=== PATIENT | female | born 1965 | race Hispanic/Latino ===

== ENCOUNTER → 2024-07-16 | Day surgery (SDC) | payer OTHER ==
[~2024-07-16] MED LIST: LACTATED RINGER'S 1,000 ML ONE; LIDOCAINE HCL 2% LOCAL INJ 5 ML SDV VIAL INJ ONE; METFORMIN HCL500 MG PO; OMEGA 3 1,0001 EACH PO; PROPOFOL IV EMULSION 10 MG/ML 20 ML VIAL ONE; PROPOFOL IV EMULSION 50 ML IV ONE; SIMVASTATIN20 MG PO
[2024-07-16 12:10] VITALS: BP 127/74; PULSE 79; RESP 17; O2SAT 98
== END | disposition home or self-care (01) ==
LOC: OR 07:48
PROVIDERS: ATTEND Internal Medicine Gastroenterology
DX: Z12.11 Encounter for screening for malignant neoplasm of colon (principal); D12.4 Benign neoplasm of descending colon; D12.8 Benign neoplasm of rectum; K57.30 Diverticulosis of large intestine without perforation or abscess without bleeding; K64.8 Other hemorrhoids; E11.9 Type 2 diabetes mellitus without complications; E78.5 Hyperlipidemia, unspecified; R06.02 Shortness of breath; F41.9 Anxiety disorder, unspecified; Z79.84 Long term (current) use of oral hypoglycemic drugs; Z79.899 Other long term (current) drug therapy
CPT/HCPCS: 45385; J2003; J2704 ×2; J7121; 45378